=== PATIENT | male | born 1945 | race Caucasian/White ===

== ENCOUNTER 2024-07-16 13:05 | Emergency (ER) | payer MEDICARE, SELFPAY ==
--- NOTE | 2024-07-16 13:15 | CPS ---
Patient arrived already intubated with 7.0 ETT at 27cm by Squad.
--- NOTE | 2024-07-16 13:53 | EX.ED.DYSGE1 ---
HPI History of Present Illness Chief Complaint: CPR Informant: EMS Narrative Narrative: Patient is an 78-year-old male who EMS reports they were called for as he was found unresponsive. 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 EMS was called and when they arrived they confirmed he was unresponsive without a pulse or spontaneous respiration. It is unknown how long he was down prior to EMS arriving. EMS states that they began CPR and when they placed him on the monitor he had changes consistent with ventricular tachycardia for which they provided defibrillation. They state that after a few rounds of epinephrine they did receive ROSC but lost that shortly after. They report that it appeared to be V-fib once again and he received another defibrillation. They continued with CPR and ACS protocol for epinephrine and he received ROSC 1 more time at which they transmitted an EKG to the ER. This EKG showed STEMI. However he lost pulses once again prior to arrival. ROS ROS ED ROS Narrative Unable to obtain review of systems as patient is unresponsive secondary to his cardiopulmonary arrest EXAM Physical Exam Const Vital Signs: 07/16/24 13:05 07/16/24 13:17 Oxygen Delivery Method Ambu-Bag EtCo2 (Normal 35-45 , high quality CPR 10-20 & ROSC>/=40mmHg 37 Positive obese General Appearance ED: pallor Nutritional Appearance: obese HEENT HEENT Narrative: Normocephalic atraumatic Eyes Eyes Narrative: Pupils are fixed and dilated without corneal reflex Chest Wall palpation of chest normal Chest Narrative: No bony deformity or crepitance noted Resp Resp Narrative: Patient was intubated by EMS prior to arrival. There is bilateral breath sounds noted with bagging and no spontaneous inspiration Cardio Rate: other Other Details: No spontaneous pulses palpated or auscultated Strong carotid and femoral pulses with compression GI GI Narrative: Soft and nondistended with hypoactive bowel sounds No pulsatile mass noted Extremity Extremity Narrative: Pelvis is stable there is no shortening or external rotation of either lower extremity No long bone injury noted Neuro Neuro Narrative: Patient is unresponsive with GCS of 3 Skin Skin Narrative: Skin is pale and mottled General Skin Exam: pallor MDM MDM MDM Narrative Medical decision making narrative: Patient was found by EMS unresponsive pulseless and apneic and therefore they began ACLS protocol. He was intubated in the field. He received 2 rounds of defibrillation as well as multiple rounds of epinephrine per ACLS protocol. Upon arrival he is still in cardiopulmonary arrest. ACLS protocol was continued with epinephrine given every 3 to 5 minutes and he was given amiodarone as EMS reported 2 rounds of ventricular fibrillation. He was also given a another amp of sodium bicarb secondary to the prolonged downtime. Despite persistent CPR medication the patient never received return of spontaneous circulation. Initial call was at 12:17 and patient has been down now for approximately 1 hour of known downtime. Based on the prolonged downtime and his physical exam showing no response to treatment it was felt that continuing ACLS resuscitative efforts was futile. An ultrasound was placed on the patient and there is no signs of spontaneous cardiac activity which correlates with his physical exam. Therefore the patient was pronounced at 1:14 PM. Critical Care Time Critical Care Time: Yes Critical care time (excluding procedures): Discussing w/Patient &/or Family/Box Covering Machine Operator, Performing Direct Patient Care at Bedside and - (Critical care time of 15 minutes) Discharge Plan Triage Chief Complaint: CPR ED Provider: Marcel Aguirre Dx/Rx/DC Orders Clinical Impression: Cardiopulmonary arrest Primary Care Provider: Care Physician,No Primary Referrals: Care Physician,No Primary [Primary Care Provider] - Print Language: Ukrainian Disposition Disposition:
[2024-07-16 14:05] VITALS: TEMP 35.5; BMI 37.5
--- NOTE | 2024-07-16 16:04 | CHAPLAIN ---
Type of Pastoral Visit ___ Initial Visit ___ Follow-up Visit ___ On-call Visit ___ General Patient Visit ___ Spiritual Assessment ___ Family Conference ___ Bereavement ___ Rapid Response _x__ Code Blue ___ Other (describe below) Pastoral Care Referral From ___ Patient ___ Family ___ Nurse ___ Physician ___ Hide Washer ___ Wardrobe Supervisor _x__ Other (describe below) Sacrament/Intervention _x__ Active listening ___ Anointing ___ Hindu _x__ Bereavement ___ Communion ___ Lilliana exploration ___ _x__ Life review _x__ Prayer ___ Reconciliation ___ Sacrament of Sick _x__ Supportive presence ___ Wedding ___ Other (describe below) Pastoral Comments responded to the code blue in ED; upon arrival found that a daughter had already come into the waiting room before the patient arrived by squad; checked on status of the patient and then went to offer support and presence to the daughter while waiting for further information; daughter was making several phone calls to family members and was expecting many more to come to the hospital; was present with family members at two occasions when the doctors involved came to talk with them; pt without a successful resuscitation; over the next hour family members continued to arrive and finally the of the patient; gave much support, consolation, prayers, escorting in and out of room to see the ; LYNDSAY was also very involved in this situation;
--- NOTE | 2024-07-16 20:38 | CM.ED ---
Social Work Reason for visit: Code blue Patient was brought to the ED after being found at his place of employment unresponsive in the bathroom. Patient was pronounced in the ED. Patients daughter was in waiting room when SW and distribution center administrator went to speak with family. Daughter stated that her dad and his just moved to [place] from [place], that they were having some finacial problems and her father went back to work. Several other family members came to ED, family was shown to patients room to view patient. Supportive listening and emotional support provided by both SW and In Home Aide. Martha Shen, CODING TEAM LEAD, PARTS MANAGER
--- NOTE | 2024-07-18 12:41 | CM.ED ---
Social work An individual named Laura Modi called in about 1030 this morning claiming to be patient's daughter. Laura stated patient had two days ago (01/16) and stated patient's full name and birthday. Laura stated patient had collapsed at work and Laura requested knowing if any of [facility] ED documents stated information to validate a worker's compensation claim. This SW stating needing to call Laura back after having a chance to review information. Laura stated understanding (ph: [phone]). Due to Laura not being listed as an emergency contact for patient, this SW called Laura back stating need to call HIM and obtain patient's medical records. Laura stated understanding and thanked SW for the time. SW expressed condolences for Laura's loss. Annette Buckner, TIRE CARE MANAGER, [employer]
== END 2024-07-16 16:40 ==
PROVIDERS: Emergency Provider Emergency Medicine; Visit Provider Emergency Medicine
DX: I46.9 Cardiac arrest, cause unspecified (principal)
CPT/HCPCS: 92950; 99282; A4216